=== PATIENT | male | born 1950 | race Caucasian/White ===

== ENCOUNTER 2020-06-07 10:19 | Emergency (ER) | payer MEDICARE ==
[~2020-06-07] VITALS: Ht 167.6 cm; Wt 81.7 kg
[~2020-06-07 10:19] MED LIST: OXYC-302 PO
[2020-06-07 11:05] LABS: BASOPHILS % (AUTO) 1 % (0-1); EOSINOPHILS % (AUTO) 3 % (1-7); LYMPHOCYTES % (AUTO) 27 % (22-44); MEAN CORPUSCULAR HEMOGLOBIN 28.6 pg (27.5-34.5); MEAN PLATELET VOLUME 7.6 fL (7.4-10.4); MONOCYTES % (AUTO) 7 % (2-9); NEUTROPHILS % (AUTO) 63 % (42-75); PLATELET COUNT 279 x10^3/uL (130-400); RED BLOOD COUNT 5.22 x10^6/uL (4.38-5.82); RED CELL DISTRIBUTION WIDTH 14.9 % (9.4-14.8)
[2020-06-07 11:07] LABS: MD NO
[2020-06-07 11:31] LABS: ALANINE AMINOTRANSFERASE 23 U/L (12-78); ALBUMIN 3.7 g/dL (3.4-5.0); ANION GAP 6 mmol/L (5-15); CALCIUM 9.3 mg/dL (8.5-10.1); CHLORIDE 105 mmol/L (98-107); CREATININE 1.13 mg/dL (0.7-1.3)
[2020-06-07 11:33] LABS: ALKALINE PHOSPHATASE 97 U/L (45-117); BILIRUBIN,TOTAL 0.6 mg/dL (0.2-1.0); TOTAL PROTEIN 7.6 g/dL (6.4-8.2)
[2020-06-07] MEDS ORDERED: IRBE150T9 PO (12:38)
[2020-06-07] MEDS ORDERED: TAMS-11 PO (12:40)
[2020-06-07] MEDS ORDERED: LEVO100T5 PO (12:40)
[2020-06-07] MEDS ORDERED: LEVO25TA2 PO (12:40)
[2020-06-07] MEDS ORDERED: ATOR40TA PO (12:41)
[2020-06-07] MEDS ORDERED: ASPI81TA45 PO (12:42)
[2020-06-07] MEDS ORDERED: CA C1TAB59 PO (12:44)
--- NOTE | 2020-06-07 14:11 | NUR ---
BREAK RN: URINE COLLECTED AND SENT TO LAB. IN ROOM FOR RECHECK.
[2020-06-07 14:31] LABS: MICROSCOPIC NOT IND
[2020-06-07 14:49] VITALS: BP 122/77
--- NOTE | 2020-06-07 14:50 | NUR ---
Patient given discharge instructions and they have confirmed that they understand the instructions. Patient ambulatory with steady gait.
== END 2020-06-07 14:52 | disposition home or self-care (01) ==
LOC: ED 14:40
DX: R10.13 Epigastric pain (principal); R10.30 Lower abdominal pain, unspecified; E78.5 Hyperlipidemia, unspecified; E03.9 Hypothyroidism, unspecified; I10 Essential (primary) hypertension; Z90.89 Acquired absence of other organs
CPT/HCPCS: 36415; 74176; 76700; 80053; 81003; 83690; 85025; 93005; 99285

== ENCOUNTER → 2020-07-05 | Outpatient (CLI) | payer MEDICARE ==
[~2020-07-05] MED LIST changes: +ASPI81TA45 PO; +ATOR40TA PO; +CA C1TAB59 PO; +IRBE150T9 PO; +LEVO100T5 PO; +LEVO25TA2 PO; +TAMS-11 PO
== END | disposition home or self-care (01) ==
LOC: CVU 07:56
PROVIDERS: ATTEND Internal Medicine Hematology & Oncology
DX: I34.8 Other nonrheumatic mitral valve disorders (principal); E78.5 Hyperlipidemia, unspecified; E03.9 Hypothyroidism, unspecified; R59.1 Generalized enlarged lymph nodes
CPT/HCPCS: 93306; 93356

== ENCOUNTER → 2020-10-15 | Outpatient (CLI) | payer MEDICARE ==
[~2020-10-15] MED LIST changes: -OXYC-302 PO; +OXYC1TAB14 PO
== END | disposition home or self-care (01) ==
LOC: CVU 08:05
PROVIDERS: ATTEND Internal Medicine Hematology & Oncology
DX: I08.8 Other rheumatic multiple valve diseases (principal); C83.30 Diffuse large B-cell lymphoma, unspecified site; R59.1 Generalized enlarged lymph nodes; E78.5 Hyperlipidemia, unspecified; Z79.01 Long term (current) use of anticoagulants
CPT/HCPCS: 93306; 93356